=== PATIENT | female | born 2000 | race Caucasian/White ===

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

== ENCOUNTER 2019-09-25 16:58 | Emergency (ER) | payer OTHER ==
[2019-09-25 17:38] VITALS: BP 129/73
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
--- NOTE | 2019-09-26 08:08 | UC ---
- Progress Note Progress Note: Please notify patient her right shoulder x-ray showed mild acromioclavicular joint separation. This usually heals on it's own with time. Apply ice to the area and take ibuprofen as needed for pain. If symptoms persist over the next two weeks, recommend scheduling an appointment with orthopedist (contact information was provided on discharge instructions). Bell Captain: Ke Hudson F ([id number]) K9 Handler: GEOFFREY ( IRLANDAANCE) Report Date: 09/25/2019 18:15:00 Report Status: Final ====== Start of Report Content Patient Name: YENNI ORDOÑEZ Medical Record#: [id number] Ordering Physician: Nae Santacruz NP Acct.#: [id number] : 2000 Age: 19 Sex: F Location: [facility] Exam Date: 09/25 174 ADM Status: [facility] ER Order Information: SHOULDER RIGHT 2+ VWS Accession Number: [id number] CPT: 62878 INDICATION: Right shoulder injury. TECHNIQUE: 4 views of the right shoulder were obtained. FINDINGS: There is mild widening of the acromial clavicular joint. The bones are otherwise in normal alignment. No fracture is seen. IMPRESSION: MILD ACROMIOCLAVICULAR JOINT SEPARATION. <Electronically signed by Ke Hudson MD in OV> 09/25/191810 Dictated By: Ke Hudson MD Dictated Date/Time: 09/25/191809 Transcribed Date/Time: 09/25/191809 Copy to: CC:Nae Santacruz GOLD FRAME ASSEMBLER; No Primary Care Phys,NOPCP ; Ruben Moran MD Imaging - [facility] Imaging - [facility] Imaging - [facility] [address] [place], [place] [id number] [place] [id number] [place] [id number] ph [phone] ph [phone] ph ) End of Report Content Course/Dx - Diagnoses Provider Diagnoses: Right shoulder injury Discharge ED - Sign-Out/Discharge Documenting (check all that apply): Post-Discharge Follow Up All imaging exams completed and their final reports reviewed: Yes - Discharge Plan Condition: Stable Disposition: HOME Prescriptions: Cyclobenzaprine TAB* [Flexeril 10 MG TAB*] 10 mg PO Q12H PRN #10 tab PRN Reason: Pain - Mild Ibuprofen TAB* [Motrin TAB* 800 MG] 800 mg PO Q8H PRN #15 tab PRN Reason: Pain - Mild Patient Education Materials: Arthralgia (ED), Shoulder Pain (ED) Referrals: [facility] – [place] PH[facility] REFERRAL [Outside] - If Needed Quique Neff MD [Medical Doctor] - If Needed No Primary Care Phys,NOPCP [Primary Care Provider] - - Billing Disposition and Condition Condition: STABLE Disposition: Home
== END 2019-09-25 18:10 | disposition home or self-care (01) ==
LOC: UCCORT 16:58
DX: S49.91XA Unspecified injury of right shoulder and upper arm, initial encounter (principal); W23.1XXA Caught, crushed, jammed, or pinched between stationary objects, initial encounter; Y93.02 Activity, running; Y92.9 Unspecified place or not applicable
CPT/HCPCS: 99212; G0463